=== PATIENT | female | born 1995 | race Caucasian/White ===

== ENCOUNTER → 2016-11-28 | Outpatient (CLI) | payer OTHER ==
[2016-11-28 17:20] LABS: Basophils % (A) 1 %; CH 29.6; CHCM 31.6; Eosinophils # (A) 0.1 k/uL (0-0.7); Eosinophils % (A) 1 %; HCT 44.5 % (34.0-46.0); HDW 2.35; HGB 13.8 gm/dL (11.4-16.0); Luc # (Auto) 0.07; Luc % (Auto) 1; Lymphocytes # (A) 1.9 k/uL (1.0-4.8); Lymphocytes % (A) 30 %; MCH 29.2 pg (25.0-35.0); MCV 94.3 fL (80.0-100.0); Mean Platelet Volume 8.6; Monocytes # (A) 0.4 k/uL (0-1.0); Monocytes % (A) 6 %; Neutrophils # (A) 3.8 k/uL (1.3-7.7); Neutrophils % (A) 61 %; RBC 4.71 m/uL (3.80-5.40); RDW 14.4 % (11.5-15.5); WBC 6.3 k/uL (4.0-11.0); WBC (Perox) 6.52
[2016-11-28 17:28] LABS: ALT 36 U/L (9-52); AST 27 U/L (14-36); Alkaline Phosphatase 87 U/L (38-126); Anion Gap 12 mmol/L; Blood Urea Nitrogen 15 mg/dL (7-17); Calcium 10.1 mg/dL (8.4-10.2); Carbon Dioxide 25 mmol/L (22-30); Chloride 106 mmol/L (98-107); Cholesterol 152 mg/dL (<200); Glucose 76 mg/dL (74-99); HDL Cholesterol 61 mg/dL (40-60); Non-African American GFR(MDRD) >60 (>60 ml/min/1.73 sqM); Potassium 4.4 mmol/L (3.5-5.1); Sodium 143 mmol/L (137-145); Total Protein 7.4 g/dL (6.3-8.2)
[2016-11-28 17:42] LABS: Follicle Stimulating Hormone 1.9 mIU/mL
== END ==
LOC: MMGSC 10:41
PROVIDERS: ATTEND Family Medicine
DX: N92.6 Irregular menstruation, unspecified (principal)
CPT/HCPCS: 36415; 80053; 80061; 83001; 83002; 84146; 84443; 85025

== ENCOUNTER 2017-09-30 13:57 | Observation (INO) | payer MEDICAID, OTHER ==
[2017-09-30] MEDS ORDERED: SODIUM CHLORIDE 0.9% 500 ML IV STA (14:34)
--- NOTE | 2017-09-30 14:53 | ED ---
General Adult HPI - General Chief complaint: Syncope Stated complaint: syncope/ hit head Time Seen by Provider: 09/30/17 14:00 Source: patient, RN notes reviewed Mode of arrival: wheelchair Limitations: no limitations - History of Present Illness Initial comments: This is a 22-year-old female presents emergency department after having a syncopal episode. Patient was at work and she was watching an ultrasound and states she did not feel lightheaded or have any palpitations or chest pain she just woke up on the floor and complains of some posterior and left-sided headache and jaw pain on the right. Patient fell states she probably hit her right jaw because she chipped her right lower molar. Patient now complains of some tenderness on the jawline but states her teeth are still aligned and she can have full range of motion of the jaw. Patient denies any nausea or vomiting. Patient denied any pre-drome to the syncopal episode. Patient states she did not feel nauseated prior to the episode. Patient states she has not had a history of passing out. Patient denies any drug use. Patient also complains of some right sided neck pain. Patient states she had breakfast morning but missed lunch. - Related Data Home Medications Medication Instructions Recorded Confirmed Lessina 1 tab PO DAILY 09/30/17 09/30/17 Allergies Allergy/AdvReac Type Severity Reaction Status Date / Time No Known Allergies Allergy Verified 09/30/17 14:22 Review of Systems ROS Statement: Those systems with pertinent positive or pertinent negative responses have been documented in the HPI. ROS Other: All systems not noted in ROS Statement are negative. Past Medical History Past Medical History: No Reported History History of Any Multi-Drug Resistant Organisms: None Reported Past Surgical History: No Surgical Hx Reported Past Psychological History: No Psychological Hx Reported Smoking Status: Never smoker Past Alcohol Use History: None Reported Past Drug Use History: None Reported General Exam - General Exam Comments Initial Comments: GENERAL: Patient is well-developed and well-nourished. Patient is nontoxic and well- hydrated and is in mild distress ENT: Neck is soft and supple. No significant lymphadenopathy is noted. Oropharynx is clear. Moist mucous membranes. Neck has full range of motion without eliciting any pain. Patient has some tenderness in the right trapezius muscle up to the base of the skull. Patient's jaw is mildly tender she has full range of motion of the jaw on her teeth are all times. Patient does have a small chip on the right lower molar. The tooth is not tender to palpation EYES: The sclera were anicteric and conjunctiva were pink and moist. Extraocular movements were intact and pupils were equal round and reactive to light. Eyelids were unremarkable. PULMONARY: Unlabored respirations. Good breath sounds bilaterally. No audible rales rhonchi or wheezing was noted. CARDIOVASCULAR: There is a regular rate and rhythm without any murmurs gallops or rubs. ABDOMEN: Soft and nontender with normal bowel sounds. SKIN: Skin is clear with no lesions or rashes and otherwise unremarkable. NEUROLOGIC: Patient is alert and oriented x3. Cranial nerves II through XII are grossly intact. Motor and sensory are also intact. Normal speech, volume and content. Symmetrical smile. MUSCULOSKELETAL: Normal extremities with adequate strength and full range of motion. LYMPHATICS: No significant lymphadenopathy is noted PSYCHIATRIC: Normal psychiatric evaluation. Normal interpersonal interactions appears functionally intact in deals appropriately with others. Limitations: no limitations Course Vital Signs 09/30/17 14:13 Temperature 98.9 F Pulse Rate 84 Respiratory 18 Rate Blood Pressure 152/81 O2 Sat by Pulse 99 Oximetry Medical Decision Making - Medical Decision Making EKG shows normal sinus rhythm at 81 bpm PA interval is on a 42 QRS is 86 Q-T intervals 372 QTC is 432. Patient's EKG shows some inverted T waves in V1 and V2 and V3. I showed the EKG to cardiology. They recommended an echo which was done in the emergency department. And they recommended admission. I spoke with some physicians he agreed to accept the patient admitted the patient I consult cardiology. CT of the brain and C-spine were negative. Lab work was negative as well. Patient is not being admitted for any trauma concerns patient is being admitted for syncope and the abnormal EKG. - Lab Data Result diagrams: 09/30/17 14:35 09/30/17 14:35 Lab Results 09/30/17 09/30/17 09/30/17 Range/Units 14:35 14:35 14:35 WBC 11.6 H (3.8-10.6) k/uL RBC 4.67 (3.80-5.40) m/uL Hgb 13.6 (11.4-16.0) gm/dL Hct 40.1 (34.0-46.0) % MCV 85.9 (80.0-100.0) fL MCH 29.2 (25.0-35.0) pg MCHC 34.0 (31.0-37.0) g/dL RDW 12.9 (11.5-15.5) % Plt Count 269 (150-450) k/uL Neutrophils % 78 % Lymphocytes % 16 % Monocytes % 4 % Eosinophils % 1 % Basophils % 0 % Neutrophils # 9.1 H (1.3-7.7) k/uL Lymphocytes # 1.8 (1.0-4.8) k/uL Monocytes # 0.5 (0-1.0) k/uL Eosinophils # 0.1 (0-0.7) k/uL Basophils # 0.0 (0-0.2) k/uL PT (9.0-12.0) sec INR (<1.2) APTT (22.0-30.0) sec Sodium 140 (137-145) mmol/L Potassium 3.9 (3.5-5.1) mmol/L Chloride 106 (98-107) mmol/L Carbon Dioxide 21 L (22-30) mmol/L Anion Gap 13 mmol/L BUN 11 (7-17) mg/dL Creatinine 0.70 (0.52-1.04) mg/dL Est GFR (CKD-EPI)AfAm >90 (>60 ml/min/1.73 sqM) Est GFR (CKD-EPI)NonAf >90 (>60 ml/min/1.73 sqM) Glucose 117 H (74-99) mg/dL Calcium 9.6 (8.4-10.2) mg/dL Magnesium 1.8 (1.6-2.3) mg/dL Total Bilirubin 1.0 (0.2-1.3) mg/dL AST 20 (14-36) U/L ALT 27 (9-52) U/L Alkaline Phosphatase 41 (38-126) U/L Total Creatine Kinase 54 (30-135) U/L CK-MB (CK-2) 0.4 (0.0-2.4) ng/mL CK-MB (CK-2) Rel Index 0.7 Troponin I <0.012 (0.000-0.034) ng/mL Total Protein 6.9 (6.3-8.2) g/dL Albumin 4.1 (3.5-5.0) g/dL 09/30/17 Range/Units 14:35 WBC (3.8-10.6) k/uL RBC (3.80-5.40) m/uL Hgb (11.4-16.0) gm/dL Hct (34.0-46.0) % MCV (80.0-100.0) fL MCH (25.0-35.0) pg MCHC (31.0-37.0) g/dL RDW (11.5-15.5) % Plt Count (150-450) k/uL Neutrophils % % Lymphocytes % % Monocytes % % Eosinophils % % Basophils % % Neutrophils # (1.3-7.7) k/uL Lymphocytes # (1.0-4.8) k/uL Monocytes # (0-1.0) k/uL Eosinophils # (0-0.7) k/uL Basophils # (0-0.2) k/uL PT 10.2 (9.0-12.0) sec INR 1.0 (<1.2) APTT 21.7 L (22.0-30.0) sec Sodium (137-145) mmol/L Potassium (3.5-5.1) mmol/L Chloride (98-107) mmol/L Carbon Dioxide (22-30) mmol/L Anion Gap mmol/L BUN (7-17) mg/dL Creatinine (0.52-1.04) mg/dL Est GFR (CKD-EPI)AfAm (>60 ml/min/1.73 sqM) Est GFR (CKD-EPI)NonAf (>60 ml/min/1.73 sqM) Glucose (74-99) mg/dL Calcium (8.4-10.2) mg/dL Magnesium (1.6-2.3) mg/dL Total Bilirubin (0.2-1.3) mg/dL AST (14-36) U/L ALT (9-52) U/L Alkaline Phosphatase (38-126) U/L Total Creatine Kinase (30-135) U/L CK-MB (CK-2) (0.0-2.4) ng/mL CK-MB (CK-2) Rel Index Troponin I (0.000-0.034) ng/mL Total Protein (6.3-8.2) g/dL Albumin (3.5-5.0) g/dL Disposition Clinical Impression: Syncope and collapse, Abnormal EKG, Fractured tooth, Cervical strain, Facial contusion Disposition: ADMITTED IP TO THIS HOSP Referrals: Cherelle Loving MD [Primary Care Provider] - 1-2 days Time of Disposition: 16:42
[2017-09-30 15:11] LABS: Basophils % (A) 0 %; Eosinophils # (A) 0.1 k/uL (0-0.7); Eosinophils % (A) 1 %; HCT 40.1 % (34.0-46.0); HGB 13.6 gm/dL (11.4-16.0); Lymphocytes # (A) 1.8 k/uL (1.0-4.8); Lymphocytes % (A) 16 %; MCH 29.2 pg (25.0-35.0); MCV 85.9 fL (80.0-100.0); Mean Platelet Volume 6.8; Monocytes # (A) 0.5 k/uL (0-1.0); Monocytes % (A) 4 %; Neutrophils # (A) 9.1 k/uL (1.3-7.7); Neutrophils % (A) 78 %; Platelet Count 269 k/uL (150-450); RBC 4.67 m/uL (3.80-5.40); RDW 12.9 % (11.5-15.5); WBC 11.6 k/uL (3.8-10.6)
[2017-09-30 15:21] LABS: ALT 27 U/L (9-52); AST 20 U/L (14-36); Albumin 4.1 g/dL (3.5-5.0); Alkaline Phosphatase 41 U/L (38-126); Anion Gap 13 mmol/L; Blood Urea Nitrogen 11 mg/dL (7-17); Calcium 9.6 mg/dL (8.4-10.2); Carbon Dioxide 21 mmol/L (22-30); Chloride 106 mmol/L (98-107); Glucose 117 mg/dL (74-99); Magnesium 1.8 mg/dL (1.6-2.3); Potassium 3.9 mmol/L (3.5-5.1); Prothrombin Time 10.2 sec (9.0-12.0); Sodium 140 mmol/L (137-145); Total Protein 6.9 g/dL (6.3-8.2)
[2017-09-30 15:27] LABS: Creatine Kinase 54 U/L (30-135)
[2017-09-30 15:28] LABS: Partial Thromboplastin Time 21.7 sec (22.0-30.0)
[2017-09-30 15:36] LABS: Creatine Kinase MB 0.4 ng/mL (0.0-2.4); Troponin I <0.012 ng/mL (0.000-0.034)
--- NOTE | 2017-09-30 15:44 | CT ---
EXAMINATION TYPE: CT brain sravanthi wo con DATE OF EXAM: 09/30/2017 COMPARISON: NONE HISTORY: Syncope today, pain. CT DLP: 1414 mGycm Automated exposure control for dose reduction was used. TECHNIQUE: CT scan of the head and cervical spine are performed without contrast. FINDINGS: There is no acute intracranial hemorrhage, mass effect, or midline shift identified. The ventricles and sulci are within normal limits in size. The globes are intact and the visualized sin uses are clear. Cervical spine is visualized in its entirety from C1 through upper thoracic levels and demonstrates s atisfactory alignment without evidence of acute fracture or dislocation. Prevertebral soft tissue ap pears within normal limits. 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 IMPRESSION: 1. There is no acute fracture or dislocation evident in the cervical spine. 2. No acute intracranial hemorrhage, mass effect, or midline shift is seen.
[2017-09-30] MEDS ORDERED: SODIUM CHLORIDE 0.9% 1,000 ML IV ONE (16:45)
--- NOTE | 2017-09-30 16:57 | XR ---
EXAMINATION TYPE: XR chest 2V DATE OF EXAM: 09/30/2017 COMPARISON: NONE HISTORY: Syncope TECHNIQUE: Frontal and lateral views of the chest are obtained. FINDINGS: Heart and mediastinum are normal. Lungs are clear. Diaphragm is normal. There are chest le ads. Bony thorax is intact. IMPRESSION: Normal chest.
[2017-09-30] MEDS ORDERED: NALOXONE 0.4 MG/ML 1 ML VIAL IV PRN (17:36)
[2017-09-30] MEDS ORDERED: ACETAMINOPHEN TAB 325 MG TAB PO PRN (17:36)
[2017-09-30] MEDS ORDERED: ONDANSETRON 4 MG/2 ML VIAL IVP PRN (17:36)
--- NOTE | 2017-09-30 17:52 | P.HPIM ---
History of Present Illness H&P Date: 09/30/17 Is a 22-year-old female with no past medical history was admitted to the hospital for a syncopal episode Patient states that she didn't have any symptoms before the episode did not have any chest pain do not have any shortness of breath did not have any nausea or vomiting and she suddenly lost consciousness probably for a few minutes and then she regained that completely back was may be confused for a few seconds and then after that she was not confused Denies having any syncopal episodes except when she was 7 years old No family history of seizures Review of systems and systems has been reviewed all negative and positive findings as per HPI Constitutional: No acute distress, conversant, pleasant Eyes: Anicteric sclerae, moist conjunctiva, no lid-lag PERRLA ENMT: Cranial nerves grossly intact Neck: Supple, FROM, no masses, or JVD No carotid bruits No thyromegaly Lungs: Clear to auscultation Clear to percussion Normal respiratory effort, no accessory muscle use Cardiovascular: Heart regular in rate and rhythm, No murmurs, gallops, or rubs No peripheral edema Abdominal: Soft Nontender, no guarding, rebound or rigidity Abdomen moving with respiration Normoactive bowel sounds No hepatomegaly, No splenomegaly No palpable mass No abdominal wall hernia noted Skin: Normal temperature, tone, texture, Extremities: No digital cyanosis No clubbing Pedal pulses intact and symmetrical Radial pulses intact and symmetrical Normal gait and station No calf tenderness Psychiatric:Alert and oriented to person, place and time Appropriate affect Intact judgement Neuro: No obvious weakness ast Medical History: No Reported History History of Any Multi-Drug Resistant Organisms: None Reported Past Surgical History: No Surgical Hx Reported Past Psychological History: No Psychological Hx Reported Smoking Status: Never smoker Past Alcohol Use History: None Reported Past Drug Use History: None Reported Laboratory Results - last 24 hr 09/30/17 09/30/17 09/30/17 14:35 14:35 14:35 WBC 11.6 H RBC 4.67 Hgb 13.6 Hct 40.1 MCV 85.9 MCH 29.2 MCHC 34.0 RDW 12.9 Plt Count 269 Neutrophils % 78 Lymphocytes % 16 Monocytes % 4 Eosinophils % 1 Basophils % 0 Neutrophils # 9.1 H Lymphocytes # 1.8 Monocytes # 0.5 Eosinophils # 0.1 Basophils # 0.0 PT INR APTT Sodium 140 Potassium 3.9 Chloride 106 Carbon Dioxide 21 L Anion Gap 13 BUN 11 Creatinine 0.70 Est GFR (CKD-EPI)AfAm >90 Est GFR (CKD-EPI)NonAf >90 Glucose 117 H Calcium 9.6 Magnesium 1.8 Total Bilirubin 1.0 AST 20 ALT 27 Alkaline Phosphatase 41 Total Creatine Kinase 54 CK-MB (CK-2) 0.4 CK-MB (CK-2) Rel Index 0.7 Troponin I <0.012 Total Protein 6.9 Albumin 4.1 09/30/17 14:35 WBC RBC Hgb Hct MCV MCH MCHC RDW Plt Count Neutrophils % Lymphocytes % Monocytes % Eosinophils % Basophils % Neutrophils # Lymphocytes # Monocytes # Eosinophils # Basophils # PT 10.2 INR 1.0 APTT 21.7 L Sodium Potassium Chloride Carbon Dioxide Anion Gap BUN Creatinine Est GFR (CKD-EPI)AfAm Est GFR (CKD-EPI)NonAf Glucose Calcium Magnesium Total Bilirubin AST ALT Alkaline Phosphatase Total Creatine Kinase CK-MB (CK-2) CK-MB (CK-2) Rel Index Troponin I Total Protein Albumin Vital Signs 09/30/17 09/30/17 14:13 17:17 Temperature 98.9 F Pulse Rate 84 86 Respiratory 18 16 Rate Blood Pressure 152/81 136/79 O2 Sat by Pulse 99 100 Oximetry Assessment and plan Syncopal episode exact etiology not clear since the patient didn't have any symptoms before the episode cardiac workup is indicated And also will rule out PE, patient takes oral contraceptives which increases the risk of blood clots Since the patient also did have abnormal EKG cardiology has been consulted echocardiogram has been ordered We will hydrate the patient and observe the patient overnight Past Medical History Past Medical History: No Reported History History of Any Multi-Drug Resistant Organisms: None Reported Past Surgical History: No Surgical Hx Reported Past Psychological History: No Psychological Hx Reported Smoking Status: Never smoker Past Alcohol Use History: None Reported Past Drug Use History: None Reported Medications and Allergies Home Medications Medication Instructions Recorded Confirmed Type Lessina 1 tab PO DAILY 09/30/17 09/30/17 History Allergies Allergy/AdvReac Type Severity Reaction Status Date / Time No Known Allergies Allergy Verified 09/30/17 14:22 Physical Exam Vitals: Vital Signs Temp Pulse Resp BP Pulse Ox 09/30/17 17:17 86 16 136/79 100 09/30/17 14:13 98.9 F 84 18 152/81 99 Intake and Output 09/30/17 09/30/17 09/30/17 06:59 14:59 22:59 Other: Weight 63.503 kg Results CBC & Chem 7: 09/30/17 14:35 09/30/17 14:35 Labs: Abnormal Lab Results - Last 24 Hours (Table) 09/30/17 09/30/17 09/30/17 Range/Units 14:35 14:35 14:35 WBC 11.6 H (3.8-10.6) k/uL Neutrophils # 9.1 H (1.3-7.7) k/uL APTT 21.7 L (22.0-30.0) sec Carbon Dioxide 21 L (22-30) mmol/L Glucose 117 H (74-99) mg/dL
[2017-09-30 18:37] VITALS: BMI 23.3
--- NOTE | 2017-09-30 20:34 | CT ---
EXAMINATION TYPE: CT angio chest DATE OF EXAM: 09/30/2017 8:08 PM COMPARISON: NONE HISTORY: Syncope today CT DLP: 519 mGycm Automated exposure control for dose reduction was used. CONTRAST: CTA scan of the thorax is performed with IV Contrast, patient injected with 80 mL of Isovue 370, pulm onary embolism protocol. There are 3-D post processed images.. FINDINGS: There is minimal subpleural interstitial density at the posterior lung bases. There is no evidence of pulmonary mass. There is no pleural effusion. Heart size is normal. There is no pericardial effusion . Thoracic aorta appears normal. There is normal contrast opacification of the pulmonary arteries. Ther e are no filling defects. There is no mediastinal adenopathy. There are no hilar masses. Bony thorax is intact. IMPRESSION: NORMAL CT ANGIOGRAM OF THE CHEST. NO EVIDENCE OF PULMONARY EMBOLISM. MINIMAL INTERSTITIAL INFILTRATE AT THE POSTERIOR LUNG BASES.
[2017-09-30] MEDS: SODIUM CHLORIDE 0.9% 1,000 ML IV SCH (21:06)
[2017-10-01 02:23] LABS: Basophils # (A) 0.1 k/uL (0-0.2); Basophils % (A) 1 %; Eosinophils # (A) 0.3 k/uL (0-0.7); Eosinophils % (A) 3 %; HCT 36.7 % (34.0-46.0); HGB 12.1 gm/dL (11.4-16.0); Lymphocytes # (A) 3.3 k/uL (1.0-4.8); Lymphocytes % (A) 32 %; MCH 28.7 pg (25.0-35.0); MCV 87.1 fL (80.0-100.0); Mean Platelet Volume 6.9; Monocytes # (A) 0.7 k/uL (0-1.0); Monocytes % (A) 7 %; Neutrophils # (A) 5.9 k/uL (1.3-7.7); Neutrophils % (A) 57 %; Platelet Count 239 k/uL (150-450); RBC 4.21 m/uL (3.80-5.40); RDW 13.4 % (11.5-15.5); WBC 10.3 k/uL (3.8-10.6)
[2017-10-01 02:34] LABS: ALT 30 U/L (9-52); AST 17 U/L (14-36); Albumin 3.4 g/dL (3.5-5.0); Alkaline Phosphatase 39 U/L (38-126); Anion Gap 8 mmol/L; Blood Urea Nitrogen 10 mg/dL (7-17); Carbon Dioxide 23 mmol/L (22-30); Chloride 109 mmol/L (98-107); Glucose 94 mg/dL (74-99); Potassium 3.9 mmol/L (3.5-5.1); Sodium 140 mmol/L (137-145); Total Bilirubin 0.8 mg/dL (0.2-1.3); Total Protein 5.9 g/dL (6.3-8.2)
--- NOTE | 2017-10-01 12:38 | P.CRDCN ---
History of Present Illness History of present illness: Ms. Ignacio is a pleasant 22-year-old female with no past medical history. She denies history of coronary artery disease and has never seen a head bucker for any reason. We have been asked to see her in consultation for EKG changes with a syncopal episode. 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 She was standing during the procedure when she started to feel dizzy. The dizziness came on all of a sudden without warning and the next thing she can recall she was on the floor. She hit the floor on her right side and cracked one of her teeth. She denies symptoms of chest pain, shortness of breath, nausea, vomiting, diaphoresiss or palpitations prior to passing out. She states when she came too she felt good with no further symptoms of dizziness. This occurred in the afternoon and she had not eaten lunch that day. EKG reveals sinus mechanism with T-wave inversion in anterior leads. There is no old for comparison. Chest x-ray is negative for an acute cardiopulmonary process. CT of the head and spine is negative for an acute intracranial hemorrhage or fracture dislocation of spine. CT angios the chest is normal with no evidence of pulmonary embolism. There is minimal interstitial infiltrate noted at the posterior lung bases. Laboratory data reviewed, hemoglobin 12.1, platelets 239, sodium 140, potassium 3.9, cardiac enzymes negative 3. She takes no daily medications. Review of Systems At the time of my exam: CONSTITUTIONAL: Denies fever. Denies chills. EYES: Denies blurred vision. Denies vision changes. Denies eye pain. EARS, NOSE, MOUTH & THROAT: Denies headache. Denies sore throat. Denies ear pain. CARDIOVASCULAR: Denies chest pain. Denies shortness of breath. Denies orthopnea. Denies PND. Denies palpitations. RESPIRATORY: Denies cough. GASTROINTESTINAL: Denies abdominal pain. Denies diarrhea. Denies constipation. Denies nausea. Denies vomiting. MUSCULOSKELETAL: Denies myalgias. INTEGUMENTARY: Denies pruitis. Denies rash. NEUROLOGIC: Denies numbness. Denies tingling. Denies weakness. PSYCHIATRIC: Denies anxiety. Denies depression. ENDOCRINE: Denies fatigue. Denies weight change. Denies polydipsia. Denies polyurina. GENITOURINARY: Denies burning, hematuria or urgency with micturation. HEMATOLOGIC: Denies history of anemia. Denies bleeding. Past Medical History Past Medical History: No Reported History History of Any Multi-Drug Resistant Organisms: None Reported Past Surgical History: No Surgical Hx Reported Additional Past Surgical History / Comment(s): arm reset when cuate was 5 years old, wisdom teeth removed Additional Past Anesthesia/Blood Transfusion Reaction / Comment(s): no blood transfusions, no issues with anesthesia Past Psychological History: No Psychological Hx Reported Smoking Status: Never smoker Past Alcohol Use History: None Reported Past Drug Use History: None Reported Medications and Allergies Home Medications Medication Instructions Recorded Confirmed Type Lessina 1 tab PO DAILY 09/30/17 09/30/17 History Allergies Allergy/AdvReac Type Severity Reaction Status Date / Time No Known Allergies Allergy Verified 09/30/17 14:22 Physical Exam Vitals: Vital Signs Temp Pulse Pulse Resp BP BP BP 10/01/17 07:45 98.3 F 71 16 119/64 10/01/17 04:00 55 L 16 10/01/17 03:51 63 16 110/53 09/30/17 23:42 98.9 F 60 16 112/59 09/30/17 23:28 64 18 09/30/17 20:00 72 18 09/30/17 18:47 65 18 09/30/17 18:20 99.7 F H 65 18 123/60 09/30/17 18:00 64 16 123/60 09/30/17 17:17 86 16 136/79 09/30/17 14:13 98.9 F 84 18 152/81 Pulse Ox 10/01/17 07:45 100 10/01/17 04:00 10/01/17 03:51 100 09/30/17 23:42 100 09/30/17 23:28 09/30/17 20:00 09/30/17 18:47 09/30/17 18:20 100 09/30/17 18:00 100 09/30/17 17:17 100 09/30/17 14:13 99 Intake and Output 09/30/17 10/01/17 10/01/17 22:59 06:59 14:59 Other: Voiding Method Toilet Toilet # Voids 1 Weight 67.4 kg 67.4 kg Blood pressure 119/64 heart rate 71 afebrile maintaining oxygen saturation on room air GENERAL: This is a 22-year-old female in no apparent distress at the time of my examination. HEENT: Head is atraumatic, normocephalic. Pupils are equal, round. Sclerae anicteric. Conjunctivae are clear. Mucous membranes of the mouth are moist. Neck is supple. There is no jugular venous distention. No carotid bruit is heard. LUNGS: Clear to auscultation no wheezes, rales or rhonchi. No chest wall tenderness is noted on palpation or with deep breathing. HEART: Regular rate and rhythm without murmurs, rubs or gallops. S1 and S2 heard. ABDOMEN: Soft, nontender. Bowel sounds are heard. No organomegaly noted. EXTREMITIES: No evidence of peripheral edema and no calf tenderness noted. VASCULAR: Radial and dorsalis pedis pulses palpated, no evidence of clubbing. NEUROLOGIC: Patient is awake, alert and oriented x3. Results 10/01/17 02:00 10/01/17 02:00 Cardiac Enzymes 09/30/17 09/30/17 10/01/17 Range/Units 14:35 14:35 02:00 AST 20 17 (14-36) U/L CK-MB (CK-2) 0.4 (0.0-2.4) ng/mL Troponin I <0.012 (0.000-0.034) ng/mL 10/01/17 10/01/17 Range/Units 02:00 07:26 AST (14-36) U/L CK-MB (CK-2) (0.0-2.4) ng/mL Troponin I <0.012 <0.012 (0.000-0.034) ng/mL Coagulation 09/30/17 Range/Units 14:35 PT 10.2 (9.0-12.0) sec APTT 21.7 L (22.0-30.0) sec CBC 09/30/17 10/01/17 Range/Units 14:35 02:00 WBC 11.6 H 10.3 (3.8-10.6) k/uL RBC 4.67 4.21 (3.80-5.40) m/uL Hgb 13.6 12.1 (11.4-16.0) gm/dL Hct 40.1 36.7 (34.0-46.0) % Plt Count 269 239 (150-450) k/uL Comprehensive Metabolic Panel 09/30/17 10/01/17 Range/Units 14:35 02:00 Sodium 140 140 (137-145) mmol/L Potassium 3.9 3.9 (3.5-5.1) mmol/L Chloride 106 109 H (98-107) mmol/L Carbon Dioxide 21 L 23 (22-30) mmol/L BUN 11 10 (7-17) mg/dL Creatinine 0.70 0.60 (0.52-1.04) mg/dL Glucose 117 H 94 (74-99) mg/dL Calcium 9.6 9.0 (8.4-10.2) mg/dL AST 20 17 (14-36) U/L ALT 27 30 (9-52) U/L Alkaline Phosphatase 41 39 (38-126) U/L Total Protein 6.9 5.9 L (6.3-8.2) g/dL Albumin 4.1 3.4 L (3.5-5.0) g/dL Current Medications Generic Name Dose Route Start Last Admin Trade Name Freq PRN Reason Stop Dose Admin Acetaminophen 650 mg 09/30/17 17:36 09/30/17 18:45 Tylenol Tab PO 650 mg Q6HR PRN Administration Mild Pain or Fever > 100.5 Sodium Chloride 1,000 mls @ 100 mls/hr 09/30/17 18:00 09/30/17 21:06 Saline 0.9% IV 100 mls/hr .Q10H MAT Administration Naloxone HCl 0.2 mg 09/30/17 17:36 Narcan IV Q2M PRN Opioid Reversal Ondansetron HCl 4 mg 09/30/17 17:36 Zofran IVP Q8HR PRN Nausea And Vomiting Intake and Output 09/30/17 10/01/17 10/01/17 22:59 06:59 14:59 Other: Voiding Method Toilet Toilet # Voids 1 Weight 67.4 kg 67.4 kg 10/01/17 02:00 10/01/17 02:00 Assessment and Plan Assessment: ASSESSMENT 1. Syncopal episode PLAN Obtain 2D echocardiogram and doppler study to assess cardiac structure and function. Continue to obtain serial cardiac enzymes to rule out an acute coronary event. Perform stress echocardiogram to assess for stress induced ischemia. If stress test is negative she is stable from a cardiac perspective. Event monitor will be mailed to the patients home through the office with instructions for application. Follow up with Dr. Martell in 6 weeks. Thank you kindly for this consultation. Nurse Practitioner note has been reviewed, I agree with a documented findings and plan of care. Patient was seen and examined.
[2017-10-01] MEDS: SODIUM CHLORIDE 0.9% 1,000 ML IV SCH (12:41)
--- NOTE | 2017-10-01 14:57 | P.STRESS ---
- Stress Test Note Stress Test Results/Findings: Exam Performed: stress echo exercise Exam Date: 10/01/17 Reason for Exam: SYNCOPE Height: 5 ft 5 in Weight: 67.132 kg Protocol: STRESS ECHO Stage: IV Duration of Exercise: 12.08 Resting Heart Rate: 78 Resting Blood Pressure: 136/83 Maximum Achieved Heart Rate: 184 Maximum Achieved Blood Pressure: 162/82 85% PMHR: 92 100% PMHR: 199 METS: 12.1 Technologist Comment: Stress Test Results/Findings: This is a 22-year-old female was admitted to the hospital with palpitation and syncopal episode. Patient is being evaluated for cardiac status. Stress data: Baseline EKG showed sinus rhythm with normal WI interval, QRS duration with T-wave inversions in the anterior leads, and blood pressure at rest is 136/83 with pulse rate of 78. Patient walked on the Se protocol for 12 minutes and 8 seconds achieving a maximal heart rate of 184 with blood pressure 135/64. EKGs taken during and after exercise did not reveal any changes to suggest ischemia. No arrhythmias were detected. Patient did not expense any chest pain. Echo data: Baseline echo images show normal wall motion and thickening. Exercise is echo images showed augmentation of wall motion and thickening in all segments. Final impression: #1. Negative stress test #2. Negative stress echo
--- NOTE | 2017-10-01 15:15 | ECHOF ---
Referral Reason:assess lvf MEASUREMENTS -------- HEIGHT: 165.1 cm WEIGHT: 63.5 kg BP: RVIDd: 2.3 cm (< 3.3) IVSd: 0.9 cm (0.6 - 1.1) LVIDd: 3.4 cm (3.9 - 5.3) LVPWd: 1.0 cm (0.6 - 1.1) IVSs: 1.3 cm LVIDs: 2.4 cm LVPWs: 1.4 cm LAESV Index (A-L): 20.06 ml/m Ao Diam: 2.7 cm (2.0 - 3.7) AV Cusp: 1.7 cm (1.5 - 2.6) LA Diam: 2.1 cm (2.7 - 3.8) EPSS: 0.6 cm MV E Rudi: 1.27 m/s MV DecT: 575 ms MV A Rudi: 1.16 m/s MV E/A Ratio: 1.10 RAP: 5.00 mmHg RVSP: 12.19 mmHg MV EF SLOPE: 91.04 mm/s (70 - 150) MV EXCURSION: 1.99 cm (> 18.000) FINDINGS -------- Sinus rhythm. This was a technically good study. The left ventricular size is normal. Left ventricular wall thickness is normal. Overall left vent ricular systolic function is normal with, an EF between 55 - 60 %. The right ventricle is normal in size and function. Normal LA size by volume 22+/-6 ml/m2. The right atrium is normal in size. The aortic valve is trileaflet, and appears structurally normal. No aortic stenosis or regurgitation. The mitral valve is normal. There is trace mitral regurgitation. Trace tricuspid regurgitation present. Right ventricular systolic pressure is normal at < 35 mmHg. There is no evidence of pulmonary hypertension. Trace/mild (physiologic) pulmonic regurgitation. The aortic root size is normal. Normal inferior vena cava with normal inspiratory collapse consistent with estimated right atrial pre ssure of 5 mmHg. There is no pericardial effusion. CONCLUSIONS -------- 1. Sinus rhythm. 2. This was a technically good study. 3. The left ventricular size is normal. 4. Left ventricular wall thickness is normal. 5. Overall left ventricular systolic function is normal with, an EF between 55 - 60 %. 6. Normal LA size by volume 22+/-6 ml/m2. 7. The aortic valve is trileaflet, and appears structurally normal. No aortic stenosis or regurgitati on. 8. There is trace mitral regurgitation. 9. Trace tricuspid regurgitation present. 10. Right ventricular systolic pressure is normal at < 35 mmHg. 11. There is no evidence of pulmonary hypertension. 12. Trace/mild (physiologic) pulmonic regurgitation. 13. The aortic root size is normal. 14. There is no pericardial effusion. COMPLAINT INVESTIGATIONS OFFICER: Tres Gordon RDCS
[2017-10-01 16:01] VITALS: BP 115/58; PULSE 77; RESP 16; TEMP 98.7
--- NOTE | 2017-10-01 16:25 | P.DS ---
Providers Date of admission: 09/30/17 16:45 Attending physician: Dione Cain MD This is a 22-year-old female with no significant past medical history was admitted to the hospital with a syncopal episode Question about abnormal EKG so cardiology has been consulted echocardiogram was done to assess was done no evidence of any significant ischemia no evidence of significant arrhythmias Patient didn't have any chest pain or shortness of breath computed tomography scan of the chest was done and did not show any PE or dissection Patient remained stable and asymptomatic during the hospital stay Constitutional: No acute distress, conversant, pleasant Eyes: Anicteric sclerae, moist conjunctiva, no lid-lag PERRLA ENMT: Cranial nerves grossly intact Neck: Supple, FROM, no masses, or JVD No carotid bruits No thyromegaly Lungs: Clear to auscultation Clear to percussion Normal respiratory effort, no accessory muscle use Cardiovascular: Heart regular in rate and rhythm, No murmurs, gallops, or rubs No peripheral edema Abdominal: Soft Nontender, no guarding, rebound or rigidity Skin: Normal temperature, tone, texture, turgor No induration No subcutaneous nodules No rash, lesions No ulcers Extremities: No digital cyanosis No clubbing Pedal pulses intact and symmetrical Radial pulses intact and symmetrical Normal gait and station No calf tenderness Psychiatric:Alert and oriented to person, place and time Appropriate affect Intact judgement Neuro: Generalized weakness Laboratory Results - last 24 hr 10/01/17 10/01/17 10/01/17 02:00 02:00 02:00 WBC 10.3 RBC 4.21 Hgb 12.1 Hct 36.7 MCV 87.1 MCH 28.7 MCHC 33.0 RDW 13.4 Plt Count 239 Neutrophils % 57 Lymphocytes % 32 Monocytes % 7 Eosinophils % 3 Basophils % 1 Neutrophils # 5.9 Lymphocytes # 3.3 Monocytes # 0.7 Eosinophils # 0.3 Basophils # 0.1 Sodium 140 Potassium 3.9 Chloride 109 H Carbon Dioxide 23 Anion Gap 8 BUN 10 Creatinine 0.60 Est GFR (CKD-EPI)AfAm >90 Est GFR (CKD-EPI)NonAf >90 Glucose 94 Calcium 9.0 Total Bilirubin 0.8 AST 17 ALT 30 Alkaline Phosphatase 39 Troponin I <0.012 Total Protein 5.9 L Albumin 3.4 L 10/01/17 07:26 WBC RBC Hgb Hct MCV MCH MCHC RDW Plt Count Neutrophils % Lymphocytes % Monocytes % Eosinophils % Basophils % Neutrophils # Lymphocytes # Monocytes # Eosinophils # Basophils # Sodium Potassium Chloride Carbon Dioxide Anion Gap BUN Creatinine Est GFR (CKD-EPI)AfAm Est GFR (CKD-EPI)NonAf Glucose Calcium Total Bilirubin AST ALT Alkaline Phosphatase Troponin I <0.012 Total Protein Albumin Vital Signs - 24 hr 09/30/17 09/30/17 09/30/17 17:17 18:00 18:20 Temperature 99.7 F H Pulse Rate 86 64 Pulse Rate [ 65 Left] Pulse Rate [ Right Pulse Oximetery] Respiratory 16 16 18 Rate Blood Pressure 136/79 123/60 Blood Pressure 123/60 [Left Arm] Blood Pressure [Right Arm] O2 Sat by Pulse 100 100 100 Oximetry 09/30/17 09/30/17 09/30/17 18:47 20:00 23:28 Temperature Pulse Rate Pulse Rate [ 65 72 64 Left] Pulse Rate [ Right Pulse Oximetery] Respiratory 18 18 18 Rate Blood Pressure Blood Pressure [Left Arm] Blood Pressure [Right Arm] O2 Sat by Pulse Oximetry 09/30/17 10/01/17 10/01/17 23:42 03:51 04:00 Temperature 98.9 F Pulse Rate Pulse Rate [ 60 63 55 L Left] Pulse Rate [ Right Pulse Oximetery] Respiratory 16 16 16 Rate Blood Pressure Blood Pressure 112/59 110/53 [Left Arm] Blood Pressure [Right Arm] O2 Sat by Pulse 100 100 Oximetry 10/01/17 10/01/17 10/01/17 07:45 08:00 12:20 Temperature 98.3 F 99.7 F H Pulse Rate Pulse Rate [ 71 71 Left] Pulse Rate [ 99 Right Pulse Oximetery] Respiratory 16 18 Rate Blood Pressure Blood Pressure [Left Arm] Blood Pressure 119/64 129/73 [Right Arm] O2 Sat by Pulse 100 100 Oximetry 10/01/17 15:50 Temperature 98.7 F Pulse Rate Pulse Rate [ Left] Pulse Rate [ 77 Right Pulse Oximetery] Respiratory 16 Rate Blood Pressure Blood Pressure [Left Arm] Blood Pressure 115/58 [Right Arm] O2 Sat by Pulse 100 Oximetry Assessment and plan and discharge diagnoses Syncopal episode exact etiology not clear at this time no arrythmias noted no evidence of seizures at this time Discussed the case with neurology will plan to do an EEG as an outpatient and follow-up with neurology patient will be advised not to drive until seeing the neurologist The patient also will be advised not to put herself in any conditon where if she faints or have a syncopal episode that significant life threatening condition may happen, until seeing the neurologist and the primary care physician Patient has been hemodynamically stable during this hospital stay Medications none Consults: 09/30/17 16:45 Consult Physician Urgent Consulting Provider: [facility] Consult Reason/Comments: Syncope, abnormal EKG Do you want consulting provider notified?: Yes 09/30/17 17:45 Consult Physician Routine Consulting Provider: Lakesha Nguyen Consult Reason/Comments: syncope Do you want consulting provider notified?: Yes Primary care physician: Cherelle Loving Plan - Discharge Summary Discharge Rx Participant: Yes New Discharge Prescriptions: No Action Less[place] 1 tab PO DAILY Discharge Medication List Lessina 1 tab PO DAILY 09/30/17 [History] Follow up Appointment(s)/Referral(s): Cherelle Loving MD [Primary Care Provider] - 1-2 days Jovanni Martell MD [STAFF PHYSICIAN] - 6 Weeks Discharge Disposition: HOME SELF-CARE
== END 2017-10-01 16:52 | disposition home or self-care (01) ==
LOC: EC 13:57 → 3OBS 16:45
PROVIDERS: ADMIT Internal Medicine; ATTEND Internal Medicine
DX: R55 Syncope and collapse (principal); R94.31 Abnormal electrocardiogram [ECG] [EKG]; S16.1XXA Strain of muscle, fascia and tendon at neck level, initial encounter; S02.5XXA Fracture of tooth (traumatic), initial encounter for closed fracture; S00.83XA Contusion of other part of head, initial encounter; R53.1 Weakness; W18.30XA Fall on same level, unspecified, initial encounter; Z79.3 Long term (current) use of hormonal contraceptives
CPT/HCPCS: 99285 ×2; 96360 ×2; 36415; 93005; 93306; 93351; 80053 ×2; 82550; 82553; 83735; 84484 ×2; 85025 ×2; 85610; 85730; 71046; 72125; 70450; 71275; G0378 ×2; Q9967

== ENCOUNTER 2017-12-01 12:21 | Day surgery (SDC) | payer MEDICAID ==
[2017-11-26 09:03] VITALS: BMI 24.1
[~2017-12-01 12:21] MED LIST: SODIUM CHLORIDE 0.9% 1,000 ML IV SCH
[2017-12-01 13:31] VITALS: RESP 20
[2017-12-01] MEDS ORDERED: SODIUM CHLORIDE 0.9% 500 ML IV ONE (14:36)
--- NOTE | 2017-12-01 15:38 | P.PCN ---
Preoperative Diagnosis: Symptoms Recurrent syncopal Twelve-lead ECG Sinus rhythm normal LA narrow QRS inverted T waves in leads V1 and V2 and V3 normal QT interval Tilt table test per protocol Baseline blood pressure 124/65 mmHg Baseline heart rate 82 beats a minute Patient was tilted upright at an angle of 70 per protocol. There was no significant change in the heart and blood pressure she denied any symptoms. At the end of the procedure she was laid supine Impression Normal ECG with inverted T waves in the anterior precordial leads that could represent persistence of juvenile T-waves No epsilon wave noted Normal heart rate and blood pressure response to upright tilting
[2017-12-01 17:48] VITALS: BP 125/76; PULSE 75
== END 2017-12-01 15:30 | disposition home or self-care (01) ==
LOC: CATHEP 12:21
PROVIDERS: ATTEND Internal Medicine Clinical Cardiac Electrophysiology
DX: R55 Syncope and collapse (principal); Z82.49 Family history of ischemic heart disease and other diseases of the circulatory system; Z79.3 Long term (current) use of hormonal contraceptives
CPT/HCPCS: 81025; 93660

== ENCOUNTER → 2017-12-14 | Outpatient (CLI) | payer MEDICAID ==
--- NOTE | 2017-12-14 13:10 | MR ---
EXAMINATION TYPE: MR brain wo con DATE OF EXAM: 12/14/2017 COMPARISON: HISTORY: Syncope CONTRAST: Performed utilizing 0 mL intravenous Gadavist gadolinium contrast. TECHNIQUE: Multiplanar, multiecho imaging on a 3.0 Deana magnet is performed through the brain. Stud y is performed within 24 hours of arrival to the hospital. The craniovertebral junction is normal. The pituitary is normal. Diffusion-weighted imaging is performed. No abnormal hyperintensity is present to suggest an acute i ntracranial infarct or acute ischemic change. The region of the pineal appears prominent. This is hyperintense on T2-weighted sequences and hypoint ense on T1-weighted imaging. This has a more slightly hyper intense appearance on the inversion recov andrez weighted sequence. This is not hyperintense on the diffusion-weighted imaging. This area measures 1.2 x 2.0 cm on the inversion recovery sequences. 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 Additional evaluation with contrast however is recommended. Signal through the remaining portions of the brain appears normal. Ventricles and sulci are appropriate for the patient age. No hydrocephalus is evident. Third ventricl e and fourth ventricle are midline without enlargement. IMPRESSIONS: 1. Prominence of the pineal gland. Additional imaging with contrast MRI is recommended.
== END | disposition home or self-care (01) ==
LOC: RADMRIMAIN 06:41
PROVIDERS: ATTEND Nurse Practitioner Acute Care
DX: R55 Syncope and collapse (principal)
CPT/HCPCS: 70551; 87491; 87591

== ENCOUNTER → 2018-05-06 | Outpatient (CLI) | payer MEDICAID ==
--- NOTE | 2018-05-07 01:09 | MR ---
EXAMINATION TYPE: MR brain wo/w con DATE OF EXAM: 05/06/2018 COMPARISON: 12/14/2017 HISTORY: Abnormal MRI / Brain cyst TECHNIQUE: Multiplanar, multisequence images of the brain and brainstem is performed without and with IV contras t, utilizing 6.5 mL intravenous Gadavist . FINDINGS: The ventricles of normal size. There is no mass effect nor midline shift. There is no sign of intracr anial hemorrhage. There is no pathologic enhancement. 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 This is posterior to the third ventricle. There is no pathologic enhancement. Corpus callosum appears normal. There is normal contrast enhancement of the venous sinuses. 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 Otherwise negative exam.
== END | disposition home or self-care (01) ==
LOC: RADMRIMAIN 21:05
PROVIDERS: ATTEND Otolaryngology
DX: E34.8 Other specified endocrine disorders (principal)
CPT/HCPCS: 70553; A9585

== ENCOUNTER → 2018-05-11 | Outpatient (CLI) | payer MEDICAID | END | disposition home or self-care (01) | LOC: LABWHC1 14:20 | PROVIDERS: ATTEND Otolaryngology | DX: J30.89 Other allergic rhinitis (principal) | CPT/HCPCS: 36415 ==

== ENCOUNTER → 2019-02-01 | Outpatient (CLI) | payer MEDICAID ==
[2019-02-01 10:33] LABS: HCT 39.1 % (34.0-46.0); HGB 12.8 gm/dL (11.4-16.0); MCH 29.4 pg (25.0-35.0); MCHC 32.7 g/dL (31.0-37.0); MCV 89.9 fL (80.0-100.0); Platelet Count 284 k/uL (150-450); RBC 4.35 m/uL (3.80-5.40); RDW 12.3 % (11.5-15.5); WBC 6.9 k/uL (3.8-10.6)
[2019-02-01 15:49] LABS: African American GFR (CKD) 142.5 (60.0-200.0); Albumin 4.3 g/dL (3.80-4.90); Albumin/Globulin Ratio 2.05 (1.60-3.17); Anion Gap 9.5 mmol/L (4.00-12.00); BUN/Creat Ratio 15.71 Ratio (12.00-20.00); Calcium 9.6 mg/dL (8.7-10.3); Carbon Dioxide 24.5 mmol/L (21.6-31.8); Chol/HDL Ratio 2.84; Globulin 2.1 g/dL (1.6-3.3); LDL Cholesterol,Calculated 74.6 mg/dL (0.0-131.0); Potassium 4.3 mmol/L (3.5-5.5); Total Protein 6.4 g/dL (6.2-8.2); VLDL Calculation 17.4 mg/dL (5.00-40.00)
[2019-02-01 15:57] LABS: T4, Free (Free Thyroxine) 1.1 ng/dL (0.80-1.80)
== END | disposition home or self-care (01) ==
LOC: LABWHC1 09:38
PROVIDERS: ATTEND Family Medicine
DX: Z00.00 Encounter for general adult medical examination without abnormal findings (principal)
CPT/HCPCS: 36415; 80053; 80061; 84439; 84443; 85027